=== PATIENT | female | born 1950 | race Caucasian/White ===

== ENCOUNTER → 2019-04-24 | Outpatient (CLI) | payer MEDICARE | END | disposition home or self-care (01) | LOC: LABWHC1 12:09 | PROVIDERS: ATTEND Urology | DX: Z08 Encounter for follow-up examination after completed treatment for malignant neoplasm (principal); Z87.440 Personal history of urinary (tract) infections | CPT/HCPCS: 87086 ==

== ENCOUNTER → 2023-05-10 | Outpatient (CLI) | payer MEDICARE ==
[2023-05-10 20:06] LABS: ALT 26 U/L (8-44); AST 32 U/L (13-35); Albumin 3.8 d/dL (3.8-4.9); Albumin/Globulin Ratio 1.27 Ratio (1.60-3.17); Alkaline Phosphatase 88 U/L (41-126); Blood Urea Nitrogen 18.7 mg/dL (9.0-27.0); Calcium 9.3 mg/dL (8.7-10.3); Carbon Dioxide 28.4 mmol/L (21.6-31.8); Chloride 102 mmol/L (96-109); Chol/HDL Ratio 2.74 Ratio; Glucose 137 mg/dL (70-110); LDL Cholesterol,Calculated 88.1 mg/dL (0.0-131.0); Potassium 4.9 mmol/L (3.5-5.5); Sodium 140 mmol/L (135-145); Total Bilirubin 0.6 mg/dL (0.3-1.2); Total Protein 6.8 d/dL (6.2-8.2)
[2023-05-10 21:16] LABS: HCT 33.2 % (37.2-46.3); HGB 10.4 d/dL (12.0-15.0); MCH 28.6 pg (27.0-32.0); MCHC 31.3 d/dL (32.0-37.0); MCV 91.2 FL (80.0-97.0); Mean Platelet Volume 11.2 FL (9.5-12.2); NRBC Per 100 WBC 0 X 10*3/uL (0.00-0.01); Platelet Count 174 X 10*3/uL (140-440); RBC 3.64 X 10*6/uL (4.10-5.20); RDW 14.6 % (11.5-14.5); WBC 4.82 X 10*3/uL (4.50-10.00)
== END | disposition home or self-care (01) ==
LOC: LABWHC1 13:35
PROVIDERS: ATTEND Internal Medicine
DX: E11.21 Type 2 diabetes mellitus with diabetic nephropathy (principal); E11.22 Type 2 diabetes mellitus with diabetic chronic kidney disease; N18.30 Chronic kidney disease, stage 3 unspecified
CPT/HCPCS: 36415; 80053; 80061; 83036; 85027

== ENCOUNTER → 2024-12-25 | Outpatient (CLI) | payer MEDICARE ==
[2024-12-25 14:48] LABS: African American GFR (CKD) 40 (>60 ml/min/1.73 sqM); Blood Urea Nitrogen 51 mg/dL (7-17); Non-African American GFR(CKD) 34 (>60 ml/min/1.73 sqM)
--- NOTE | 2024-12-25 15:54 | CT ---
EXAMINATION TYPE: CT abdomen pelvis w con DATE OF EXAM: 12/25/2024 COMPARISON: None CLINICAL INDICATION: Female, 74 years old with history of R10.32 LLQ PAIN; PHH, LLQ abdominal pain TECHNIQUE: Performed with Oral Contrast and with IV Contrast, patient injected with 100ml mL of Isovue 300. CT DLP: [address] CTDI: mGy Automated exposure control for dose reduction was used. FINDINGS: The lung bases are clear. The gallbladder is surgically absent. There is no biliary ductal dilatation. The contour of the liver is nodular consistent with cirrhosis. There are no focal hepatic masses. The re is mild to moderate pancreatic atrophy. There is no focal mass or gross enlargement of the spleen or adrenal glands. There is mild hazy/garrison density in the mesenteric root which could be secondary to edema from portal hypertension secondary to cirrhosis. There is no solid renal mass or hydronephrosis and there is homogeneous contrast enhancement of the r enal parenchyma. There is mild left renal atrophy. The caliber the abdominal aorta is normal is no retroperitoneal adenopathy or hemorrhage. The bowel loops are normal in caliber and there is no evidence of dilatation or obstruction. No infla mmatory changes are identified in the bowel wall or mesentery. There is no free intraperitoneal air or fluid. No pelvic mass, free fluid, abscess or adenopathy. There is surgical absence of uterus. There are no focal osseous lesions. Soft tissues are unremarkable exception of post surgical change f rom anterior abdominal hernia repair IMPRESSION: . 1. Cirrhosis of liver. 2. Mesenteric edema in the mesenteric root possibly related to portal hypertension. 3. Mild atrophy of left kidney. 4. surgical absence of the gallbladder and uterus. 5. Anterior abdominal wall mesh hernia repair [facility], Workstation: JOSÉ, 12/25/2024 3:52 PM
== END | disposition home or self-care (01) ==
LOC: RADCTMAIN 13:54
PROVIDERS: ATTEND Internal Medicine
DX: K74.60 Unspecified cirrhosis of liver (principal); N26.1 Atrophy of kidney (terminal); K43.9 Ventral hernia without obstruction or gangrene; Z90.710 Acquired absence of both cervix and uterus; Z90.49 Acquired absence of other specified parts of digestive tract
CPT/HCPCS: 82565; 84520; 74177; 36415; Q9967